=== PATIENT | female | born 1955 | race Caucasian/White ===

== ENCOUNTER → 2024-05-26 | Outpatient (CLI) | payer MEDICARE, BC, SELFPAY ==
--- NOTE | 2024-05-26 | XR_ITS ---
Shoulder bilateral, 6 views Technique: Shoulder AP internal rotation, AP external rotation, Y view each shoulder total 6 views Exam date and time :May 26, 2024 1250 hours INDICATIONS: Bilateral shoulder pain beginning 6 months ago. FINDINGS: Significant osteopenia No shoulder fracture or dislocation bilaterally Mild narrowing glenohumeral joints No calcific tendinitis IMPRESSION: Mild bilateral narrowing glenohumeral joints
== END | disposition home or self-care (01) ==
PROVIDERS: PCP Internal Medicine; Referring Provider Internal Medicine; Visit Provider Internal Medicine
DX: M25.812 Other specified joint disorders, left shoulder (principal); M25.811 Other specified joint disorders, right shoulder
CPT/HCPCS: 73030